=== PATIENT | female | born 1990 | race African-American/Black ===

== ENCOUNTER 2016-07-18 15:13 | Outpatient (CLI) | payer SELFPAY ==
[~2016-07-18] VITALS: Ht 157.5 cm; Wt 65.9 kg
[2016-07-18 15:17] VITALS: BP 109/61
[2016-07-18] MEDS ORDERED: BETAMETHASONE 6 MG/ML, 5ML IM ONE ×2 (15:30→15:31)
== END 2016-07-18 15:50 | disposition home or self-care (01) ==
LOC: LDOP 15:13
PROVIDERS: ATTEND Obstetrics & Gynecology
DX: O60.03 Preterm labor without delivery, third trimester (principal); Z23 Encounter for immunization; Z3A.31 31 weeks gestation of pregnancy
CPT/HCPCS: 59025; 96372; 99201; J0702; G0463

== ENCOUNTER 2016-08-22 15:55 | Emergency (ER) | payer MEDICAID | END 2016-08-22 16:12 | LOC: ED 16:07 | DX: Z53.21 Procedure and treatment not carried out due to patient leaving prior to being seen by health care provider (principal) ==

== ENCOUNTER 2016-08-25 15:10 | Inpatient (IN) | payer MEDICAID ==
[~2016-08-25] VITALS: Ht 154.9 cm; Wt 75.0 kg
[2016-08-25] MEDS ORDERED: OXYTOCIN 30U/ 0.9% NaCL 500ML 500 ML IV ONE (16:16)
[2016-08-25] MEDS ORDERED: LACTATED RINGERS 1,000 ML IV SCH (16:16)
[2016-08-25] MEDS ORDERED: ONDANSETRON 2MG/ML, 2ML IVPush PRN (16:30)
[2016-08-25] MEDS ORDERED: SODIUM CHLORIDE FLUSH 10ML SYR IVF PRN (16:30)
[2016-08-25] MEDS ORDERED: FENTANYL PF 100 MCG/2ML IV PRN (16:30)
[2016-08-25] MEDS ORDERED: FENTANYL PF 100 MCG/2ML IVPush PRN (16:30)
[2016-08-25 17:16] LABS: DIFF TOTAL CELLS COUNTED 100 CELL DIFF
[2016-08-25 17:18] LABS: VERIFY COUNTS? YES
[2016-08-25 17:21] LABS: ANISOCYTOSIS 1+; POIKILOCYTOSIS 1+; POLYCHROMASIA 1+
[2016-08-25] MEDS ORDERED: NEWBORN KIT ONE ×2 (19:30→21:15)
[2016-08-25] MEDS ORDERED: OXYTOCIN 30U/ 0.9% NaCL 500ML 500 ML ONE (19:30)
[2016-08-26] MEDS ORDERED: METOCLOPRAMIDE 5 MG/ML, 2ML ONE (06:45)
[2016-08-26] MEDS ORDERED: SODIUM CITRATE/CITRIC ACID 30 ML UDC ONE (06:45)
[2016-08-26] MEDS ORDERED: NEWBORN KIT ONE (06:46)
== END 2016-08-26 10:25 | disposition home or self-care (01) | DRG 781 ==
LOC: LDOP 15:10 → LDIP 16:16 → UNDOADMIN 16:16
PROVIDERS: ADMIT Obstetrics & Gynecology; ATTEND Obstetrics & Gynecology
DX: O76 Abnormality in fetal heart rate and rhythm complicating labor and delivery (principal); O26.893 Other specified pregnancy related conditions, third trimester; O28.5 Abnormal chromosomal and genetic finding on antenatal screening of mother; Z3A.36 36 weeks gestation of pregnancy; Z67.21 Type B blood, Rh negative; Z87.51 Personal history of pre-term labor
CPT/HCPCS: 36415; 59025; 85025; 86850; 86900; 99211; G0463

== ENCOUNTER 2016-09-02 21:33 | Inpatient (IN) | payer MEDICAID ==
[~2016-09-02] VITALS: Ht 154.9 cm; Wt 75.0 kg
[2016-09-02] MEDS ORDERED: OXYTOCIN 30U/ 0.9% NaCL 500ML 500 ML IV ONE (21:38)
[2016-09-02] MEDS ORDERED: D5%-LACTATED RINGERS 1,000 ML IV SCH (21:38)
[2016-09-02] MEDS: LACTATED RINGERS 1,000 ML IV SCH (21:38)
[2016-09-02] MEDS ORDERED: CALCIUM CARBONATE 500 MG TAB.CHEW PO PRN (22:00)
[2016-09-02] MEDS ORDERED: FENTANYL PF 100 MCG/2ML IV PRN (22:00)
[2016-09-02] MEDS ORDERED: ONDANSETRON 2MG/ML, 2ML IVPush PRN (22:00)
[2016-09-02] MEDS ORDERED: TERBUTALINE 1 MG/ML, 1ML IVPush PRN (22:00)
[2016-09-02] MEDS ORDERED: FENTANYL PF 100 MCG/2ML IVPush PRN (22:00)
[2016-09-02] MEDS ORDERED: NEWBORN KIT ONE (22:09)
[2016-09-02] MEDS ORDERED: OXYTOCIN 30U/ 0.9% NaCL 500ML 500 ML ONE (22:09)
[2016-09-03] MEDS ORDERED: FENTANYL PF 100 MCG/2ML ONE (00:14)
[2016-09-03] MEDS: OXYTOCIN 30U/ 0.9% NaCL 500ML 500 ML IV SCH ×3 (01:03→21:03)
[2016-09-03] MEDS ORDERED: ONDANSETRON 2MG/ML, 2ML IV PRN (01:30)
[2016-09-03] MEDS ORDERED: MISOPROSTOL 200 MCG TABLET PR PRN (01:30)
[2016-09-03] MEDS ORDERED: METHYLERGONOVINE 0.2 MG/ML IM PRN (01:30)
[2016-09-03] MEDS ORDERED: HYDROcodone/APAP 5/325 TABLET PO PRN ×2 (01:30)
[2016-09-03] MEDS ORDERED: DOCUSATE 100 MG CAPSULE PO PRN (01:30)
[2016-09-03] MEDS ORDERED: RHOGAM FROM BLOOD BANK 1 NOTE EA IM/IV ONE (01:30)
[2016-09-03] MEDS ORDERED: ACETAMINOPHEN 325 MG TABLET PO PRN (01:30)
[2016-09-03 02:50] VITALS: BP 109/72
[2016-09-03] MEDS: LACTATED RINGERS 1,000 ML IV SCH ×3 (05:38→21:38)
[2016-09-03 06:40] VITALS: BP 114/76
[2016-09-03] MEDS: PRENATAL VIT/IRON/FA 1 EACH TABLET PO SCH (08:35)
[2016-09-03] MEDS: IBUPROFEN 600 MG TABLET PO PRN ×2 (08:42→22:54)
[2016-09-03 12:56] VITALS: BP 110/73
[2016-09-03 19:50] VITALS: BP 106/67
[2016-09-04] MEDS ORDERED: IBUP-1222 PO (00:52)
[2016-09-04] MEDS ORDERED: DOCU-30 PO (00:53)
[2016-09-04 08:30] VITALS: BP 112/79
[2016-09-04] MEDS: PRENATAL VIT/IRON/FA 1 EACH TABLET PO SCH (08:32)
== END 2016-09-04 14:10 | disposition home or self-care (01) | DRG 775 ==
LOC: LDIP 21:33 → 2NW 09-03 02:45
PROVIDERS: ADMIT Obstetrics & Gynecology; ATTEND Obstetrics & Gynecology
PROC: 10E0XZZ Delivery of Products of Conception, External Approach (ICD-10-PCS; principal; 2016-09-03)
PROC: 30233S1 Transfusion of Nonautologous Globulin into Peripheral Vein, Percutaneous Approach (ICD-10-PCS; 2016-09-03)
DX: O80 Encounter for full-term uncomplicated delivery (principal); Z3A.38 38 weeks gestation of pregnancy; Z37.0 Single live birth; Z23 Encounter for immunization
CPT/HCPCS: 36415; 85025; 85461; 86850; 86900; J2790; J3010; J7120